=== PATIENT | female | born 1985 | race Two or more races ===

== ENCOUNTER → 2019-08-12 | Outpatient (REF) | payer BC ==
[2019-08-12 13:27] LABS: HEMATOCRIT 46.4 % (36.0-47.0); HEMOGLOBIN 14.8 g/dl (12.0-15.5); MEAN CORPUSCULAR HGB CONC 31.9 g/dl (32.0-36.5); MEAN CORPUSCULAR VOLUME 87.7 fl (80.0-96.0); PLATELET COUNT, AUTOMATED 446 10^3/uL (150-450); RED BLOOD COUNT 5.29 10^6/uL (4.00-5.40)
[2019-08-12 13:46] LABS: HEMOGLOBIN A1c 5.6 %
[2019-08-12 13:48] LABS: ALBUMIN 4.6 GM/DL (3.2-5.2); ALT/SGPT 23 U/L (12-78); BILIRUBIN,TOTAL 0.7 MG/DL (0.2-1.0); BLOOD UREA NITROGEN 10 MG/DL (7-18); CALCIUM LEVEL 9.2 MG/DL (8.5-10.1); CARBON DIOXIDE LEVEL 30 MEQ/L (21-32); CHLORIDE LEVEL 100 MEQ/L (98-107); CHOLESTEROL LEVEL 213 MG/DL (<200); CHOLESTEROL RISK RATIO 4.096 (<5); CREATININE FOR GFR 0.72 MG/DL (0.55-1.30); FREE T4 1.06 NG/DL (0.76-1.46); GLOMERULAR FILTRATION RATE > 60.0 (>60); GLUCOSE, FASTING 95 MG/DL (70-100); HDL CHOLESTEROL 52 MG/DL (>40); LDL CHOLESTEROL 127 MG/DL (<100); NON-HDL-C 161 MG/DL; POTASSIUM SERUM 4.3 MEQ/L (3.5-5.1); SODIUM LEVEL 137 MEQ/L (136-145); THYROID STIMULATING HORMONE 0.504 uIU/ML (0.358-3.740); TOTAL PROTEIN 8.3 GM/DL (6.4-8.2); TRIGLYCERIDES LEVEL 171 MG/DL (<150)
[2019-08-12 13:54] LABS: MALB URINE SIEMENS 36.6 MG/L
== END ==
LOC: M SFHCLERA 09:18
PROVIDERS: ATTEND Nurse Practitioner Family
DX: R03.0 Elevated blood-pressure reading, without diagnosis of hypertension (principal); Z83.3 Family history of diabetes mellitus; E66.9 Obesity, unspecified

== ENCOUNTER → 2019-11-08 | Outpatient (REF) | payer BC ==
[2019-11-08 13:40] LABS: HEMATOCRIT 43.5 % (36.0-47.0); HEMOGLOBIN 14.1 g/dl (12.0-15.5); MEAN CORPUSCULAR HEMOGLOBIN 28.5 pg (27.0-33.0); MEAN CORPUSCULAR HGB CONC 32.4 g/dl (32.0-36.5); MEAN CORPUSCULAR VOLUME 87.9 fl (80.0-96.0); PLATELET COUNT, AUTOMATED 419 10^3/uL (150-450); RED BLOOD COUNT 4.95 10^6/uL (4.00-5.40); WHITE BLOOD COUNT 10.4 10^3/uL (4.0-10.0)
[2019-11-08 14:10] LABS: HEMOGLOBIN A1c 5.3 %
[2019-11-08 14:11] LABS: ALT/SGPT 15 U/L (12-78); BILIRUBIN,TOTAL 0.3 MG/DL (0.2-1.0); CREATININE FOR GFR 0.64 MG/DL (0.55-1.30); GLOMERULAR FILTRATION RATE > 60.0 (>60); GLUCOSE CHALLENGE TEST 1 HOUR 131 MG/DL (LESS THAN 140); LDH LACTATE DEHYDROGENASE 135 U/L (84-246); URIC ACID 5.5 MG/DL (2.6-6.0)
[2019-11-08 14:14] LABS: TOTAL PROTEIN,RANDOM URINE 17.6 MG/DL (0.0-12.0)
[2019-11-08 15:12] LABS: HEPATITIS C VIRUS ABY INDEX 0.3 INDEX (<0.8); HIV 1&2 SCREEN CENTAUR NEGATIVE (NEGATIVE)
[2019-11-08 17:03] LABS: CHLAMYDIA DNA AMPLIFICATION NEGATIVE (NEGATIVE); GC DNA AMPLIFICATION NEGATIVE (NEGATIVE)
== END ==
LOC: M PLALAB 11:01
PROVIDERS: ATTEND Advanced Practice Midwife
DX: O99.211 Obesity complicating pregnancy, first trimester (principal); Z3A.10 10 weeks gestation of pregnancy

== ENCOUNTER → 2019-11-14 | Outpatient (CLI) | payer BC | LOC: M LAB 08:01 | PROVIDERS: ATTEND Advanced Practice Midwife | DX: Z36.89 Encounter for other specified antenatal screening (principal); O99.211 Obesity complicating pregnancy, first trimester ==

== ENCOUNTER → 2019-11-22 | Outpatient (CLI) | payer BC | LOC: M PLALAB 10:34 | PROVIDERS: ATTEND Advanced Practice Midwife | DX: Z34.02 Encounter for supervision of normal first pregnancy, second trimester (principal); Z3A.00 Weeks of gestation of pregnancy not specified ==

== ENCOUNTER → 2020-01-02 | Outpatient (REF) | payer BC | LOC: M SFHCWAGY 13:20 | PROVIDERS: ATTEND Obstetrics & Gynecology | DX: R30.0 Dysuria (principal) ==

== ENCOUNTER → 2020-01-05 | Outpatient (REF) | payer BC | LOC: M LAB REF 17:37 | PROVIDERS: ATTEND Advanced Practice Midwife | DX: R30.0 Dysuria (principal) ==

== ENCOUNTER → 2020-01-16 | Outpatient (CLI) | payer BC ==
--- NOTE | 2020-02-13 11:15 | REP ---
COMPLETE OBSTETRICAL ULTRASOUND CLINICAL: Obstetrical ultrasound. FINDINGS: Ultrasound examination demonstrates a single live intrauterine in cephalic presentation. motion was identified by the technologist. Placenta noted anteriorly and grade 0 without evidence for placenta previa or abruption. Amniotic fluid volume is within normal limits. Cervix measures 5.1 cm in length and appears closed. heart rate equals 141 beats per minute. Gestational age by current biometrical measurements 20 weeks 1 day with estimated date of delivery 06/03/2020. Estimated weight 333 grams (35th percentile). Anatomic assessment demonstrates normal cisterna magna, cavum, thalamus, stomach, bladder, three-vessel cord/cord insertion, facial features, and extremities. Limited evaluation of the spine, kidneys, heart/ventricular outflow tracts noted. IMPRESSION: Single live intrauterine in cephalic presentation. Appropriate estimated weight. Limited anatomical assessment warrants reevaluation and followup. MTDD
== END ==
LOC: M RAD 15:32
PROVIDERS: ATTEND Specialist
DX: Z36.89 Encounter for other specified antenatal screening (principal); Z3A.20 20 weeks gestation of pregnancy

== ENCOUNTER → 2020-02-05 | Outpatient (CLI) | payer BC ==
--- NOTE | 2020-02-15 09:07 | REP ---
FOLLOW-UP OBSTETRIC ULTRASOUND CLINICAL: Anatomical reevaluation. FINDINGS: Ultrasound examination demonstrates a single live intrauterine in variable presentation. Placenta noted anteriorly and grade 0 without placenta previa or abruption. Amniotic fluid volume is normal. Cervix measures 4.2 cm in length and appears closed. Gestational age by current measurements 23 weeks 0 days with estimated date of delivery 06/03/2020. Gestational age by last menstrual period (LMP) 23 weeks 2 days with estimated date of delivery 06/01/2020. heart rate 163 beats per minute. Estimated weight 559 grams (51st percentile). Limited anatomical assessment demonstrates normal four chamber heart views, left ventricular outflow tract, and bilateral kidneys. Limited evaluation of the right cardiac ventricular outflow tract and spine again noted due to positioning. IMPRESSION: Single live intrauterine in variable presentation. Continued limited evaluation of the right cardiac ventricular outflow tract and spine. MTDD
== END ==
LOC: M WHC 08:51
PROVIDERS: ATTEND Advanced Practice Midwife
DX: O09.512 Supervision of elderly primigravida, second trimester (principal); Z3A.23 23 weeks gestation of pregnancy; O10.012 Pre-existing essential hypertension complicating pregnancy, second trimester

== ENCOUNTER → 2020-03-04 | Outpatient (CLI) | payer BC ==
[2020-03-04 18:41] LABS: BASO % 0.3 % (0.0-1.0); EOS # 0.2 10^3/uL (0.0-0.5); EOS % 1.6 % (0.0-3.0); HEMATOCRIT 36.8 % (36.0-47.0); HEMOGLOBIN 11.6 g/dl (12.0-15.5); LYMPH # 1.3 10^3/uL (1.5-5.0); LYMPH % 12.7 % (24.0-44.0); MEAN CORPUSCULAR HEMOGLOBIN 28.3 pg (27.0-33.0); MEAN CORPUSCULAR HGB CONC 31.5 g/dl (32.0-36.5); MEAN CORPUSCULAR VOLUME 89.8 fl (80.0-96.0); MONO # 0.6 10^3/uL (0.0-0.8); MONO % 5.4 % (0.0-5.0); NEUTROPHILS # 8.2 10^3/uL (1.5-8.5); NEUTROPHILS % 79.5 % (36.0-66.0); PLATELET COUNT, AUTOMATED 413 10^3/uL (150-450); WHITE BLOOD COUNT 10.3 10^3/uL (4.0-10.0)
== END ==
LOC: M PLALAB 15:42
PROVIDERS: ATTEND Advanced Practice Midwife
DX: O24.410 Gestational diabetes mellitus in pregnancy, diet controlled (principal); Z3A.00 Weeks of gestation of pregnancy not specified
CPT/HCPCS: 36415; 85025; 86850; 86900; 86901; J2790

== ENCOUNTER → 2020-03-04 | Outpatient (CLI) | payer BC ==
--- NOTE | 2020-03-04 16:57 | REP ---
INDICATION: F/U ANATOMY/SPINE,GROWTH COMPARISON: 02/05/2020 TECHNIQUE: Transabdominal obstetrical ultrasound with color Doppler evaluation. FINDINGS: Examination demonstrates a single live intrauterine in cephalic presentation. motion is identified by technologist. Placenta is noted anterior and grade 2 without evidence for placenta previa or abruption. Amniotic fluid volume is normal. Cervix measures 4.0 cm in length and appears closed. Multiple nabothian cysts noted in the uterine cervix. Gestational age by LMP 27 weeks 2 days with LUCIANA 06/01/2020. Gestational age by current measurements 27 weeks 4 days with LUCIANA 05/30/2020. FHR equals 149 beats per minute. Estimated weight 1144 grams (63rdpercentile). Anatomical assessment demonstrates normal spine and cardiac right ventricular outflow tract. IMPRESSION: 1. Single live intrauterine in cephalic presentation demonstrating appropriate interval growth and estimated weight. 2. In conjunction with prior examination and Dom go assessment is complete and normal. <Electronically signed by Agustin Douglas > 03/04/20 [id number]
== END ==
LOC: M WHC 14:34
PROVIDERS: ATTEND Advanced Practice Midwife
DX: O99.212 Obesity complicating pregnancy, second trimester (principal); Z3A.27 27 weeks gestation of pregnancy

== ENCOUNTER → 2020-03-22 | Outpatient (CLI) | payer BC | LOC: M WHC 08:04 | PROVIDERS: ATTEND Obstetrics & Gynecology | DX: O10.919 Unspecified pre-existing hypertension complicating pregnancy, unspecified trimester (principal) ==

== ENCOUNTER → 2020-04-01 | Outpatient (CLI) | payer BC ==
--- NOTE | 2020-04-02 05:42 | REP ---
INDICATION: CHRONIC HYPERTENSION,GROWTH COMPARISON: 03/04/2020 TECHNIQUE: Transabdominal obstetrical ultrasound with color Doppler evaluation. FINDINGS: Examination demonstrates a single live intrauterine in breech presentation. motion is identified by technologist. Placenta is noted anterior and grade 2 without evidence for placenta previa or abruption. Amniotic fluid volume is normal. Cervix measures 3.5 cm in length and appears closed.. Gestational age by LMP 31 weeks 2 days with LUCIANA 06/01/2020. Gestational age by current measurements 31 weeks 2 days with LUCIANA 06/01/2020. FHR equals 158 beats per minute. BPD: 7.8 cm 31 weeks 3 days HC: 28.4 cm thirty-one weeks 2 days AC: 27.1 cm 31 weeks 1 day FL: 6.0 cm 31 weeks 1 day HL: 5.4 cm 31 weeks 4 days HC/AC: 0.05 Estimated weight 1723 grams (35thpercentile). RADHA: 14.5 cm (8.7-23.9) IMPRESSION: Single live intrauterine in breech presentation demonstrating appropriate interval growth. <Electronically signed by Agustin Douglas > 04/02/20 0538
== END ==
LOC: M WHC 16:06
PROVIDERS: ATTEND Obstetrics & Gynecology
DX: O10.919 Unspecified pre-existing hypertension complicating pregnancy, unspecified trimester (principal); Z3A.31 31 weeks gestation of pregnancy; O32.1XX0 Maternal care for breech presentation, not applicable or unspecified

== ENCOUNTER → 2020-04-29 | Outpatient (CLI) | payer BC | LOC: M WHC 15:27 | PROVIDERS: ATTEND Advanced Practice Midwife | DX: O10.019 Pre-existing essential hypertension complicating pregnancy, unspecified trimester (principal) ==

== ENCOUNTER → 2020-04-29 | Outpatient (CLI) | payer BC ==
--- NOTE | 2020-04-30 10:11 | REP ---
INDICATION: ESSENTIAL HYPERTENSION AFFECTING . COMPARISON: 04/01/2020. TECHNIQUE: Real-time sonographic evaluation of the gravid uterus performed. FINDINGS: Estimated gestational age is35 weeks 2 days, EDC 06/01/2020. Today's measurements indicate appropriate growth. Presentation: Cephalic Placenta anterior, grade 3, without evidence of placenta previa. heart rate is recorded at 140 beats per minute. Amniotic fluid is subjectively normal. RADHA is 10.3, normal 7.8-24.9. Approximate cervical length is 3.1 cm. Biometry chart: BPD: Eighty-nine mm, 35 weeks 6 days, 59th percentile. HC: 339 mm, 38 weeks 6 days, greater than 95th percentile AC: 331 mm, 37 weeks 0 days, 75th percentile Femur length: 66 mm, 34 weeks for 1 days, 32nd percentile HC to AC ratio: 1.02, normal range 0.93-1.12.. Estimated weight: 2916g, 77th percentile. IMPRESSION: Viable single intrauterine gestation as above. Incidental note is made of moderate left hydronephrosis. Follow-up is suggested. <Electronically signed by Jd Desouza > 04/30/20 [id number]
== END ==
LOC: M WHC 16:10
PROVIDERS: ATTEND Advanced Practice Midwife
DX: O10.019 Pre-existing essential hypertension complicating pregnancy, unspecified trimester (principal)

== ENCOUNTER → 2020-05-07 | Outpatient (REF) | payer BC ==
[~2020-05-07] MED LIST: LABE100T36 PO; PRENTAB9 PO
== END ==
LOC: M SFHCWAGY 16:59
PROVIDERS: ATTEND Obstetrics & Gynecology
DX: O09.513 Supervision of elderly primigravida, third trimester (principal); O99.213 Obesity complicating pregnancy, third trimester; O10.913 Unspecified pre-existing hypertension complicating pregnancy, third trimester; O24.313 Unspecified pre-existing diabetes mellitus in pregnancy, third trimester; Z3A.36 36 weeks gestation of pregnancy

== ENCOUNTER 2020-05-14 16:24 | Inpatient (IN) | payer BC ==
[2020-05-14] VITALS (11 sets, daily range): BP systolic 150–187; BP diastolic 75–93
[~2020-05-14] VITALS: Ht 175.3 cm; Wt 125.0 kg
[2020-05-14] MEDS ORDERED: PRENTAB9 PO (16:49)
[2020-05-14] MEDS ORDERED: LABE100T36 PO (16:49)
[2020-05-14 17:23] LABS: TOTAL PROTEIN,RANDOM URINE 24.2 MG/DL (0.0-12.0)
--- NOTE | 2020-05-14 18:21 | HPEPDOC ---
Obstetrical History & Physical General Date of Admission May 14, 2020 at 17:47 History of Present Illness 34-year-old at 37+3 weeks gestation (EDC: 06/01/20). Presents to L&D after PN appointment. BP noted to be severely elevated during her PN appointment. She denies vaginal bleeding, loss of fluid or painful, frequent uterine contractions. She reports regular movement. She denies headache, visual changes, right upper quadrant pain, shortness of breath or chest pain. course: 1. Chronic Hypertension. Labetalol 100mg PO BID 2. Pregestational DM2/PCOS; Metformin 500mg BID 3. Obesity 4. Advanced maternal age PMH: HTN, PCOS SH: adenoidectomy Meds: vitamin, Labetalol 100mg PO BID, ASA 81mg daily All: NKDA [employer]: No STI or dysplasia OB: G1 Sochx: No tobacco, alcohol or drug use FamHx: heart disease, HTN labs: Blood type O negative, antibody screen negative, HepBsAg neg, HIV neg, rubella NONIMMUNE, Hep C antibody negative, RPR nonreactive, CT/GC neg, urine culture negative, 1 hour glucose challenge test 131, 3hr GTT: 105/189/162/91, GBS negative Imaging: Normal anatomy, moderate hydronephrosis (left), no placental abnormalities. Most recent: 04/29/20. 77th percentile Past Medical History Allergies Coded Allergies: No Known Allergies (Unverified , 05/14/20) Medications Scheduled Labetalol HCl (Labetalol HCl) 100 Mg Tablet, 100 MG PO BID No.137/Iron/Folic Acd ( Vitamin Tablet) 1 Each Tablet, 1 TAB PO DAILY Physical Examination Physical Examination GENERAL: Alert and oriented times three. BREAST: . ABDOMEN: Gravid and non-tender to touch. FETUS: Is vertex (VTX) by sterile vaginal examination (SVE), fetus is vertex (VTX) by Ady. HEART RATE: Regular rate and rhythm. LUNGS: Clear to auscultation (CTA). EXTREMITIES: No edema. No clonus. Deep tendon reflexes (DTRs) + 2 SVE: FT/long/high, cephalic, intact, no bloody show EFM: Cat I [place]: irregular ctx. Urine Pr/Cr: 0.275 Vital Signs/I&O Vital Signs Date Time Temp Pulse Resp B/P (MAP) Pulse Ox O2 Delivery O2 Flow Rate FiO2 05/14/20 16:40 87 18 187/93 (124) Laboratory Data 24H LABS Laboratory Tests 2 05/14/20 16:40: Urine Random Creatinine 88.0, Urine Random Total Protein 24.2H Assessment/Plan Assessment 34-year old at 37+3 weeks gestation. Dx: Chronic hypertension with severe range BPs, pre-gestational diabetes/PCOS. Reassuring maternal and status. Plan Admit and orient. Routine labs/orders w/ pre-e lab panel Group B Streptococcus (GBS) negative. Start with cervical ripening via misoprostol 50mcg SL every 4-6 hours until cervix is favorable. Counseled on Pitocin and induction of labor (IOL). Treat persistent severe hypertension with IV antihypertensives, magnesium sulfate as clinically indicated Mode of delivery plan: ; as indicated. VÍCTOR JASON DO May 14, 2020 18:21
[2020-05-14] MEDS ORDERED: INSULIN REGULAR IN 0.9 % NACL 100 UNIT in IV 1 EA IV SCH ×2 (18:26)
[2020-05-14] MEDS ORDERED: NS 1,000 ML IV SCH (18:26)
[2020-05-14] MEDS ORDERED: INSULIN IV RATE CHANGE DOCUMENTATION ML/HR XX SCH (18:30)
[2020-05-14] MEDS: miSOPROStol 50 MCG 1/2 TAB (S0191) SL SCH ×2 (18:54→23:06)
[2020-05-14 19:23] LABS: HEMATOCRIT 39.2 % (36.0-47.0); HEMOGLOBIN 12.1 g/dl (12.0-15.5); MEAN CORPUSCULAR HEMOGLOBIN 26.8 pg (27.0-33.0); MEAN CORPUSCULAR HGB CONC 30.9 g/dl (32.0-36.5); MEAN CORPUSCULAR VOLUME 86.7 fl (80.0-96.0); PLATELET COUNT, AUTOMATED 361 10^3/uL (150-450); RED BLOOD COUNT 4.52 10^6/uL (4.00-5.40); WHITE BLOOD COUNT 10.6 10^3/uL (4.0-10.0)
[2020-05-14 19:34] LABS: ALT/SGPT 16 U/L (12-78); BILIRUBIN,TOTAL 0.4 MG/DL (0.2-1.0); CREATININE FOR GFR 0.63 MG/DL (0.55-1.30); GLOMERULAR FILTRATION RATE > 60.0 (>60); LDH LACTATE DEHYDROGENASE 186 U/L (84-246); URIC ACID 6.2 MG/DL (2.6-6.0)
[2020-05-14] MEDS: LABETALOL 100 MG TAB PO SCH (21:47)
[2020-05-14] MEDS ORDERED: LABETALOL 100MG/20ML VIAL IV ONE (23:30)
[2020-05-14] MEDS ORDERED: LABETALOL 100MG/20ML VIAL IV PRN (23:45)
[2020-05-15] VITALS (39 sets, daily range): BP systolic 127–191; BP diastolic 61–91
[2020-05-15] MEDS: miSOPROStol 50 MCG 1/2 TAB (S0191) SL SCH ×2 (03:06→09:06)
[2020-05-15] MEDS ORDERED: LABE100T36 PO (08:37)
[2020-05-15] MEDS ORDERED: PRENTAB9 PO (08:37)
[2020-05-15] MEDS: LABETALOL 100 MG TAB PO SCH ×2 (09:06→21:00)
[2020-05-15] MEDS ORDERED: OXYTOCIN DRIP 30 UNITS in IV 1 EA IV SCH (13:45)
[2020-05-15] MEDS: LR 1,000 ML IV SCH (14:05)
[2020-05-15] MEDS ORDERED: LABETALOL 100MG/20ML VIAL As Ordered ONE (17:35)
[2020-05-15] MEDS ORDERED: LABETALOL 100MG/20ML VIAL IV STA ×2 (17:40→17:56)
[2020-05-15] MEDS ORDERED: BUTORPHANOL 2 MG/ML INJ (J0595) IV ONE (18:15)
[2020-05-15] MEDS ORDERED: PROMETHAZINE INJ 25 MG/ML VIAL (J2550) IV ONE (18:15)
[2020-05-15 20:15] LABS: HEMATOCRIT 37.2 % (36.0-47.0); HEMOGLOBIN 11.6 g/dl (12.0-15.5); MEAN CORPUSCULAR HEMOGLOBIN 27.3 pg (27.0-33.0); MEAN CORPUSCULAR HGB CONC 31.2 g/dl (32.0-36.5); MEAN CORPUSCULAR VOLUME 87.5 fl (80.0-96.0); PLATELET COUNT, AUTOMATED 317 10^3/uL (150-450); RED BLOOD COUNT 4.25 10^6/uL (4.00-5.40); WHITE BLOOD COUNT 12.2 10^3/uL (4.0-10.0)
[2020-05-16] VITALS (50 sets, daily range): BP systolic 138–220; BP diastolic 70–115
[2020-05-16] MEDS: LR 1,000 ML IV SCH ×3 (05:39→21:43)
[2020-05-16] MEDS: LABETALOL 100 MG TAB PO SCH ×3 (08:32→21:03)
--- NOTE | 2020-05-16 09:12 | IPNPDOC ---
Obstetrical Progress Note Date of Service May 16, 2020 Subjective Comfortable, contractions not painful Objective Vital Signs Date Time Temp Pulse Resp B/P (MAP) Pulse Ox O2 Delivery O2 Flow Rate FiO2 05/16/20 08:43 84 18 177/91 (119) 05/16/20 07:36 98.4 99 Room Air Assessment Variability: Moderate Accelerations: Positive Decelerations: None Heart Rate Tracing: Category I Tocometer Contractions: Yes Frequency: regular Duration: less than 60 seconds Strength: palpated as mild Sterile Vaginal Examination Dilation: 4 cm Effacement (%): 80% Station: -2 Cervical Consistency: Soft Cervical Position: Posterior Postion/Presentation: Cephalic presentation Assessment and Plan Additional Comments AROM clear fluid A/P 34 yo g1 at 37 5/7 weeks, day 3 induction for chronic hypertension and pregestational diabetes AROM performed as noted above Pitocin at 20 mu/minute Reassuring status JUMANA MI MD May 16, 2020 09:12
[2020-05-16 13:20] LABS: HEMATOCRIT 36.6 % (36.0-47.0); HEMOGLOBIN 11.6 g/dl (12.0-15.5); MEAN CORPUSCULAR HEMOGLOBIN 27.6 pg (27.0-33.0); MEAN CORPUSCULAR HGB CONC 31.7 g/dl (32.0-36.5); MEAN CORPUSCULAR VOLUME 86.9 fl (80.0-96.0); PLATELET COUNT, AUTOMATED 307 10^3/uL (150-450); RED BLOOD COUNT 4.21 10^6/uL (4.00-5.40); WHITE BLOOD COUNT 10.5 10^3/uL (4.0-10.0)
[2020-05-16] MEDS ORDERED: FENTANYL 2MCG/ML ROPIVACAINE 0.2% IN 0.9% NACL 100ML IVBAG As Ordered ONE (13:39)
[2020-05-16] MEDS ORDERED: LACTATED RINGER'S 1000 ML IV PRN (15:00)
[2020-05-16] MEDS ORDERED: ONDANSETRON 4MG/2ML VIAL IV PRN (15:00)
[2020-05-16] MEDS ORDERED: REFRIGERATOR IV KEYS XX PRN (15:00)
[2020-05-16] MEDS ORDERED: EPIDURAL/PCA KEYS XX PRN (15:00)
[2020-05-16] MEDS ORDERED: ePHEDrine SULFATE 25 MG/5 ML(5MG/ML) SYRINGE IV PRN (15:00)
[2020-05-16] MEDS ORDERED: diphenhydrAMINE 50MG/ML VIAL (J1200) IV PRN (15:00)
[2020-05-16] MEDS ORDERED: NALOXONE INJ 0.4MG/1ML VIAL (J2310 PER 1MG) IV PRN (15:00)
[2020-05-16] MEDS ORDERED: EPIDURAL COMMENT XX SCH (15:00)
[2020-05-16] MEDS: FENTANYL/ROPIVACAINE/NACL BAG 100 ML EPIDURAL SCH ×2 (15:34→22:16)
[2020-05-17] VITALS (22 sets, daily range): BP systolic 142–188; BP diastolic 72–98
[2020-05-17 02:13] LABS: CORD GAS ABE A -6.9; CORD GAS HCO3 A 19.8 MEQ/L; CORD GAS O2 SAT A 54.6 %; CORD GAS PCO2 A 43.5 mmHg; CORD GAS PH A 7.275 UNITS; CORD GAS PO2 A 23.9 mmHg; CORD GAS SBC A 17.9 MEQ/L; CORD GAS TCO2 A 21.1 MEQ/L
[2020-05-17 02:14] LABS: CORD GAS ABE V -6.1; CORD GAS HCO3 V 20.4 MEQ/L; CORD GAS PCO2 V 43.6 mmHg; CORD GAS PH V 7.288 UNITS; CORD GAS PO2 V 23.8 mmHg; CORD GAS SBC V 18.5 MEQ/L; CORD GAS TCO2 V 21.7 MEQ/L
[2020-05-17] MEDS ORDERED: DOCUSATE SODIUM 100MG CAPSULE PO PRN (02:30)
[2020-05-17] MEDS ORDERED: IBUPROFEN 600MG TAB PO PRN (02:30)
[2020-05-17] MEDS ORDERED: OXYTOCIN DRIP 30 UNITS in IV 1 EA IV ONE (02:30)
[2020-05-17] MEDS ORDERED: METHYLERGONOVINE MALEATE 0.2 MG TAB PO PRN (02:30)
[2020-05-17] MEDS ORDERED: ACETAMINOPHEN TAB 650MG DOSE (2X325MG) PO PRN (02:30)
[2020-05-17] MEDS ORDERED: BENZOCAINE 20% HEMORRHOIDAL OINTMENT 28GM TUBE TOP PRN (02:30)
[2020-05-17] MEDS ORDERED: ACETAMINOPHEN 500 MG TAB PO PRN (02:30)
[2020-05-17] MEDS ORDERED: MEASLES,MUMPS,RUBELLA VACCINE INJ (MMR-II) (90707) SC SCH (02:30)
[2020-05-17] MEDS ORDERED: LIDOCAINE 1% MDV 20ML VIAL INFIL ONE (02:30)
[2020-05-17] MEDS ORDERED: RHOGAM 300 MCG (1500 IU) INJ (J2790) IM SCH (02:30)
--- NOTE | 2020-05-17 02:34 | DNPDOC ---
[facility] Delivery Note Delivery Note DATE OF DELIVERY: May 17, 2020 PREDELIVERY DIAGNOSIS: 37-3/7 weeks' gestation, chronic hypertension, pregestational diabetes, induction. POST DELIVERY DIAGNOSIS: Delivered. PROCEDURE: Spontaneous vaginal delivery SCIENTIFIC DIVER: Dr. Jumana Mi MD ANESTHESIA: epidural. ESTIMATED BLOOD LOSS: 300 mL. FINDINGS: 7 pound 9 ounce Male , Score 3/5/7, nuchal cord times 1. AB.27 BE=-6.9 VB.28 BE=-6.1 DELIVERY SUMMARY: Patient is a 34-year-old 1 now para 1 who was admitted to labor and delivery for induction due to chronic hypertension and pregestational diabetes. After an induction involving Misoprostol, Cook's Catheter, and Pitocin she progressed to become fully dilated. After a 35 minute second stage of labor she had spontaneous vaginal delivery of a 7 lb 9 oz male infant. Nuchal cord x 1 reduced manually. Shoulders delivered with ease .The placenta delivered spontaneously and appeared intact. The patient received IV Pitocin immediately after delivery of the placenta. A second degree perineal laceration was repaired under local anesthesia with 2-O Chromic in the usual fashion. Sponge and needle counts correct. JUMANA MI MD May 17, 2020 02:34
[2020-05-17] MEDS ORDERED: NIFEdipine 10 MG CAP PO ONE (03:15)
[2020-05-17] MEDS: PRENATAL VITAMINS CHEWABLE TABLET PO SCH (08:30)
[2020-05-17] MEDS ORDERED: LABETALOL 200 MG TAB PO SCH (09:00)
--- NOTE | 2020-05-17 09:28 | IPNPDOC ---
Progress Note Date of Service: May 17, 2020 Progress Note SUBJECT: Carole is a 34-year-old female who delivered earlier today. She continues to have severe range blood pressures. She denies any preeclamptic symptoms. OBJECTIVE: VITAL SIGNS: See below. Alert and oriented times three. Breath sounds clear to auscultation bilaterally. Heart rate: Regular rate and rhythm, no murmurs, rubs or gallops. Extremities without clonus. ASSESSMENT: Vaginal delivery, CHTN with superimposed preeclampsia PLAN: Reviewed elevated BP's with Dr. Rosales. Recommends patient be started on Nifedipine 30 mg XR. Ordered. Will continue to monitor. Ordered repeat labs. VS, I&O, 24H, Fishbone Vital Signs/I&O Vital Signs Date Time Temp Pulse Resp B/P (MAP) Pulse Ox O2 Delivery O2 Flow Rate FiO2 05/17/20 09:00 178/92 (120) 05/17/20 08:45 89 05/17/20 06:00 98.9 16 97 Room Air I&O- Last 24 Hours up to 6 AM 05/17/20 06:00 Intake Total 2400 ml Output Total 1500 ml Balance 900 ml Laboratory Data 24H LABS Laboratory Tests 2 05/16/20 10:18: Bedside Glucose (Misc Panel) 108H 05/16/20 13:07: Nucleated Red Blood Cells % (auto) 0.0 05/16/20 15:37: Bedside Glucose (Misc Panel) 85 05/16/20 21:08: Bedside Glucose (Misc Panel) 69L 05/17/20 01:55: Cord Arterial Blood pH 7.275, Cord Arterial Blood PCO2 43.5, Cord Arterial Blood PO2 23.9, Cord Arterial Blood HCO3 19.8, Cord Arterial Blood Total CO2 21.1, Cord Arterial Blood Base Excess -6.9, Cord Arterial Base Excess (Standard 17.9, Cord Arterial Bld Oxygen Saturation 54.6, Cord Venous Blood pH 7.288, Cord Venous Blood PCO2 43.6, Cord Venous Blood PO2 23.8, Cord Venous Blood HCO3 20.4, Cord Venous Blood Total CO2 21.7, Cord Venous Base Excess (Actual) -6.1, Cord Venous Base Excess (Standard) 18.5, Cord Venous Blood Oxygen Saturation 54.0 CBC/BMP Laboratory Tests 05/16/20 13:07 PAVEL REN CNM May 17, 2020 09:28
[2020-05-17 10:24] LABS: HEMATOCRIT 37.7 % (36.0-47.0); MEAN CORPUSCULAR HEMOGLOBIN 28.1 pg (27.0-33.0); MEAN CORPUSCULAR HGB CONC 31.8 g/dl (32.0-36.5); MEAN CORPUSCULAR VOLUME 88.3 fl (80.0-96.0); PLATELET COUNT, AUTOMATED 320 10^3/uL (150-450); RED BLOOD COUNT 4.27 10^6/uL (4.00-5.40)
[2020-05-17] MEDS: NIFEdipine 30 MG XL TAB PO SCH (10:34)
[2020-05-17] MEDS: IBUPROFEN 800 MG TAB PO PRN ×2 (10:34→21:28)
[2020-05-17 10:55] LABS: ALT/SGPT 14 U/L (12-78); BILIRUBIN,TOTAL 0.5 MG/DL (0.2-1.0); GLOMERULAR FILTRATION RATE > 60.0 (>60); LDH LACTATE DEHYDROGENASE 241 U/L (84-246); URIC ACID 7.7 MG/DL (2.6-6.0)
[2020-05-17] MEDS: LABETALOL 100 MG TAB PO SCH ×2 (15:22→21:28)
[2020-05-18] VITALS (17 sets, daily range): BP systolic 138–172; BP diastolic 89–105
--- NOTE | 2020-05-18 07:26 | IPNPDOC ---
Progress Note Date of Service: May 18, 2020 Day#: 1 Progress Note SUBJECT: Carole is a 34-year-old, status post uncomplicated spontaneous vaginal delivery, doing well day # 1. Her and period has been complicated by CHTN with superimposed preeclampsia. She has been ambulating, voiding spontaneously without issue and tolerating regular diet. Breast feeding without issue. Reports lochia is like a normal period. Patient is ambulating well. Pain well controlled with Tylenol and Motrin. Denies s/s of preeclampsia. OBJECTIVE: VITAL SIGNS: BPs as below, afebrile Alert and oriented times three. Respirations regular, no accessory muscle use. Abdomen: Fundus firm at U-1. Soft, NTTP. Extremities: Mild non pitting edema in bilateral lower extremities, DTRs +2, negative clonus, no calf tenderness. Minimal lochia. Vital Signs Label Value Date Time Blood Pressure Assessment 147/88 (107) 05/17/20 1635 Source Automatic Cuff (NIBP) Blood Pressure Assessment 152/87 (108) 05/17/20 1807 Source Automatic Cuff (NIBP) Blood Pressure Assessment 146/90 05/17/20 2128 Blood Pressure Assessment 157/89 (111) 05/18/20 0200 Source Automatic Cuff (NIBP) Pulse 89 05/17/20 1807 Pulse 81 05/17/208 Pulse 82 05/18/20 0200 ASSESSMENT: Day #1. PLAN: 1. Labetalol and Procardia as ordered. Given her severe pressures this morning she will be started on Magnesium after consulting with Dr. Velasco. 2. Tylenol and Motrin for pain. 3. Encourage breast feeding. 4. BP checks every 1 hour while on Magnesium. 5. Nursing care as per policy. 6. May shower today prior to starting Magnesiumd. VS, I&O, 24H, Fishbone Vital Signs/I&O Vital Signs Date Time Temp Pulse Resp B/P (MAP) Pulse Ox O2 Delivery O2 Flow Rate FiO2 05/18/20 06:00 97.6 88 16 160/98 (118) 98 Room Air I&O- Last 24 Hours up to 6 AM 05/18/20 06:00 Output Total 300 ml Balance -300 ml Vital Signs Label Value Date Time Blood Pressure Assessment 160/98 (118) 05/18/20 0600 Source Manual Cuff/Auscultation Pulse 88 05/18/20 0600 Patient Temperature 97.6 degrees F 05/18/20 0600 Temperature Source Temporal 05/18/20 0600 Respiratory Rate 16 bpm 05/18/20 0600 Bedside Pulse Oximetry 98 % 05/18/20 0600 Blood Pressure Assessment 172/98 (122) 05/18/20 0750 Source Automatic Cuff (NIBP) Blood Pressure Assessment 172/98 05/18/20 0754 Laboratory Data 24H LABS Laboratory Tests 2 05/17/20 10:03: Nucleated Red Blood Cells % (auto) 0.0, Glomerular Filtration Rate > 60.0, Uric Acid 7.7H, Total Bilirubin 0.5, Aspartate Amino Transf (AST/SGOT) 22, Alanine Aminotransferase (ALT/SGPT) 14, Lactate Dehydrogenase 241 CBC/BMP Laboratory Tests 05/17/20 10:03 PAVEL REN CNM May 18, 2020 07:26
[2020-05-18] MEDS: NIFEdipine 30 MG XL TAB PO SCH (07:54)
[2020-05-18] MEDS: PRENATAL VITAMINS CHEWABLE TABLET PO SCH (07:55)
[2020-05-18] MEDS: LABETALOL 100 MG TAB PO SCH ×3 (07:55→20:29)
[2020-05-18] MEDS: LR 1,000 ML IV SCH ×2 (08:30→21:24)
[2020-05-18] MEDS ORDERED: MAGNESIUM *L&D* 4GM/100ML BAG (40MG/ML) IV ONE (08:30)
[2020-05-18] MEDS: MAG Sulf (OBGYN) 20GM/500ML 20,000 MG in IV 1 EA IV SCH ×2 (08:55→19:01)
[2020-05-18] MEDS ORDERED: NIFEdipine 30 MG XL TAB PO SCH (09:00)
[2020-05-19] VITALS (16 sets, daily range): BP systolic 144–168; BP diastolic 82–105
[2020-05-19] MEDS ORDERED: hydrOXYzine 25 MG TAB PO PRN (02:15)
[2020-05-19] MEDS: MAG Sulf (OBGYN) 20GM/500ML 20,000 MG in IV 1 EA IV SCH (05:16)
[2020-05-19] MEDS: LABETALOL 100 MG TAB PO SCH (09:06)
[2020-05-19] MEDS: PRENATAL VITAMINS CHEWABLE TABLET PO SCH (09:06)
[2020-05-19] MEDS: amLODIPine 10 MG TAB PO SCH (10:00)
--- NOTE | 2020-05-19 10:03 | IPNPDOC ---
Progress Note Date of Service: May 19, 2020 Day#: 2 Progress Note SUBJECT: Status post ; complicated by CHTN/superimposed pre-e. Pain co ntrolled. She has been ambulating, voiding spontaneously without issue and tolerating regular diet. Lochia decreasing/minimal. Patient is ambulating well. Denies any SOTO, visual changes, RUQ pain, sob, cp. Current antihypertensive regimen is Labetalol 300mg TID and Nifedipine XL 30mg qam. Formerly on Amlodipine prior to . Not planning on breast feeding. OBJECTIVE: VITAL SIGNS: Hypertensive (intermittently severe) afebrile. Alert and oriented times three. Abdomen: Fundus firm at U-2. Soft, NTTP. ASSESSMENT: Status post spontaneous vaginal delivery; CHTN w/ superimposed pre- eclampsia. Hypertensive, afebrile, hemodynamically stable with no evidence of infection. Asymptomatic for pre-e. PLAN: Monitor BP /symptoms closely BP regimen altered to the following: Labetalol 400mg TID and Amlodipine 10mg qam. Tylenol and Motrin for pain. Routine instructions/precautions reviewed. Routine PP visit in 6 weeks in clinic. Anticipate d/c to home tomorrow. Lala Velasco DO VS, I&O, 24H, Fishbone Vital Signs/I&O Vital Signs Date Time Temp Pulse Resp B/P (MAP) Pulse Ox O2 Delivery O2 Flow Rate FiO2 05/19/20 09:21 164/98 (120) 05/19/20 08:32 83 05/19/20 07:14 98.5 05/19/20 06:15 93 98 Room Air I&O- Last 24 Hours up to 6 AM 05/19/20 06:00 Intake Total 5044 ml Output Total 62476 ml Balance -4956 ml VÍCTOR VELASCO DO May 19, 2020 10:03
[2020-05-19] MEDS: LABETALOL 200 MG TAB PO SCH ×2 (15:23→21:57)
[2020-05-20 02:00] VITALS: BP 152/100
[2020-05-20 03:50] VITALS: BP 154/102
[2020-05-20 06:00] VITALS: BP 170/102
[2020-05-20] MEDS: LABETALOL 200 MG TAB PO SCH (06:05)
--- NOTE | 2020-05-20 07:17 | IPNPDOC ---
Progress Note Date of Service: May 20, 2020 Day#: 3 Progress Note SUBJECT: Status post . Pain is well controlled. She has been ambulating, voiding spontaneously without issue and tolerating regular diet. Lochia decreasing/minimal. Denies SOTO, visual changes, RUQ pain, sob, cp. CHTN/superimposed pre-e: Labetalol 400mg TID, Amlodipine 10mg daily OBJECTIVE: VITAL SIGNS: Hypertensive, afebrile. Alert and oriented times three. Abdomen: Fundus firm at U-2. Soft, NTTP. ASSESSMENT: Status post spontaneous vaginal delivery; CHTN. Vitals within normal limits, afebrile, hemodynamically stable with no evidence of infection. PLAN: Discharge to home today. Close f/u in office; w/in the week for walk-in BP check. Tylenol and Motrin for pain. Routine instructions/precautions reviewed. Lala Velasco DO VS, I&O, 24H, Fishbone Vital Signs/I&O Vital Signs Date Time Temp Pulse Resp B/P (MAP) Pulse Ox O2 Delivery O2 Flow Rate FiO2 05/20/20 06:05 74 170/102 05/20/20 06:00 98.4 18 98 Room Air I&O- Last 24 Hours up to 6 AM 05/20/20 06:00 Intake Total 775 ml Output Total 550 ml Balance 225 ml VÍCTOR VELASCO DO May 20, 2020 07:17
[2020-05-20] MEDS ORDERED: LABE20TAB PO (08:31)
[2020-05-20] MEDS ORDERED: AMLO1TAB25 PO (08:31)
[2020-05-20] MEDS: PRENATAL VITAMINS CHEWABLE TABLET PO SCH (08:48)
[2020-05-20 08:51] VITALS: BP 158/88
[2020-05-20] MEDS: amLODIPine 10 MG TAB PO SCH (08:51)
[2020-05-20 08:53] VITALS: BP 158/89
== END 2020-05-20 11:11 | disposition home or self-care (01) | DRG 560 ==
LOC: M LDO 16:24 → M LDI 17:47 → M OBS 05-17 04:52
PROVIDERS: ADMIT Obstetrics & Gynecology; ATTEND Obstetrics & Gynecology
PROC: 3E033VJ Introduction of Other Hormone into Peripheral Vein, Percutaneous Approach (ICD-10-PCS; 2020-05-14)
PROC: 3E0DXGC Introduction of Other Therapeutic Substance into Mouth and Pharynx, External Approach (ICD-10-PCS; 2020-05-14)
PROC: 10E0XZZ Delivery of Products of Conception, External Approach (ICD-10-PCS; principal; 2020-05-17)
PROC: 0KQM0ZZ Repair Perineum Muscle, Open Approach (ICD-10-PCS; 2020-05-17)
DX: O10.92 Unspecified pre-existing hypertension complicating childbirth (principal); E66.9 Obesity, unspecified; O24.425 Gestational diabetes mellitus in childbirth, controlled by oral hypoglycemic drugs; Z37.0 Single live birth; Z3A.37 37 weeks gestation of pregnancy; O09.523 Supervision of elderly multigravida, third trimester; O99.214 Obesity complicating childbirth; O70.1 Second degree perineal laceration during delivery

== ENCOUNTER 2021-02-06 12:36 | Emergency (ER) | payer BC ==
[~2021-02-06] VITALS: Ht 175.3 cm; Wt 117.3 kg
[~2021-02-06 12:36] MED LIST changes: +AMLO1TAB25 PO; -LABE100T36 PO; +LABE100T5 PO; +LABE20TAB PO
[2021-02-06] MEDS ORDERED: METF500T13 (13:01)
[2021-02-06 18:40] LABS: BASO # 0.1 10^3/uL (0.0-0.2); BASO % 0.5 % (0.0-1.0); EOS # 0.1 10^3/uL (0.0-0.5); EOS % 1.1 % (0.0-3.0); HEMATOCRIT 43.7 % (36.0-47.0); HEMOGLOBIN 13.9 g/dl (12.0-15.5); LYMPH # 1.5 10^3/uL (1.5-5.0); LYMPH % 15.5 % (24.0-44.0); MEAN CORPUSCULAR HEMOGLOBIN 27.3 pg (27.0-33.0); MEAN CORPUSCULAR HGB CONC 31.8 g/dl (32.0-36.5); MEAN CORPUSCULAR VOLUME 85.7 fl (80.0-96.0); MONO # 0.5 10^3/uL (0.0-0.8); MONO % 5.1 % (2.0-8.0); NEUTROPHILS # 7.4 10^3/uL (1.5-8.5); NEUTROPHILS % 77.5 % (36.0-66.0); PLATELET COUNT, AUTOMATED 423 10^3/uL (150-450); WHITE BLOOD COUNT 9.5 10^3/uL (4.0-10.0)
[2021-02-06 18:45] LABS: BLOOD UREA NITROGEN 11 MG/DL (7-18); CALCIUM LEVEL 9.2 MG/DL (8.5-10.1); CARBON DIOXIDE LEVEL 27 MEQ/L (21-32); CHLORIDE LEVEL 104 MEQ/L (98-107); CREATININE FOR GFR 0.71 MG/DL (0.55-1.30); GLOMERULAR FILTRATION RATE > 60.0 (>60); GLUCOSE, FASTING 84 MG/DL (70-100); POTASSIUM SERUM 4.1 MEQ/L (3.5-5.1); SODIUM LEVEL 138 MEQ/L (136-145)
[2021-02-06 19:06] LABS: APPEARANCE, URINE CLOUDY (CLEAR); BACTERIA, URINE AUTO NEGATIVE (NEGATIVE); BILIRUBIN, URINE AUTO NEGATIVE (NEGATIVE); BLOOD, URINE BLOOD 3+ (NEGATIVE); COLOR, URINE RED (YELLOW); GLUCOSE, URINE (UA) AUTO NEGATIVE (NEGATIVE); KETONE, URINE AUTO NEGATIVE (NEGATIVE); LEUKOCYTE ESTERASE, URINE AUTO 1+ (NEGATIVE); MUCUS, URINE SMALL (NEGATIVE); NITRITE, URINE AUTO NEGATIVE (NEGATIVE); PROTEIN, URINE AUTO 3+ mg/dL (NEGATIVE); RBC, URINE AUTO TNTC /HPF (0-3); SPECIFIC GRAVITY URINE AUTO 1.019 (1.002-1.035); SQUAMOUS EPITHELIAL CELL UR AU 8 /HPF (0-6); UROBILINOGEN, URINE AUTO 0.2 mg/dL (0.0-2.0); WBC, URINE AUTO TNTC /HPF (0-3)
[2021-02-06 19:08] LABS: HCG, SERUM QUANTITATIVE 81 MIU/ML
--- NOTE | 2021-02-06 20:01 | REP ---
INDICATION: vag bleeding, positive hcg. COMPARISON: None. TECHNIQUE: Real-time sonographic evaluation of gravid uterus performed utilizing transabdominal and endovaginal technique. FINDINGS: The uterus measures 8.3 x 4.3 x 6.7 cm. Endometrial stripe measures 7 mm. No intrauterine gestational sac or endometrial fluid collection is seen. Right ovary measures 2.8 x 2.8 x 2.8 cm left ovary 2.9 x 1.8 x 2.6 cm. Complex dominant follicle in the left ovary measures 1.7 cm. Otherwise there is no adnexal mass or free fluid identified. Blood flow is seen in each ovary with duplex Doppler evaluation, with no torsion. IMPRESSION: No intrauterine gestational sac. Complex dominant follicle left ovary. No adnexal mass, free fluid or torsion. Differential diagnosis would include very early intrauterine , missed AB, or ectopic . Suggest correlation with serial quantitative beta HCG values, and follow-up ultrasound if necessary. <Electronically signed by Jd Desouza > 02/06/211956
[2021-02-06] MEDS ORDERED: RHOGAM 300 MCG (1500 IU) INJ (J2790) IM ONE (21:40)
[2021-02-06 22:27] VITALS: BP 158/78
== END 2021-02-06 22:43 | disposition home or self-care (01) ==
LOC: M ED 12:36
DX: O20.0 Threatened abortion (principal); O46.91 Antepartum hemorrhage, unspecified, first trimester; O26.892 Other specified pregnancy related conditions, second trimester; R10.2 Pelvic and perineal pain; Z3A.09 9 weeks gestation of pregnancy; N83.02 Follicular cyst of left ovary; O99.341 Other mental disorders complicating pregnancy, first trimester; Z79.899 Other long term (current) drug therapy
CPT/HCPCS: 36415; 76801; 80048; 81001; 84702; 85025; 86850; 86900; 86901; 87088; 87186; 96372; 99284; J2790

== ENCOUNTER → 2021-02-08 | Outpatient (CLI) | payer BC ==
[~2021-02-08] MED LIST changes: +METF500T13
== END ==
LOC: M LAB 12:52
PROVIDERS: ATTEND Emergency Medicine
DX: O20.0 Threatened abortion (principal); Z3A.00 Weeks of gestation of pregnancy not specified

== ENCOUNTER → 2021-02-15 | Outpatient (CLI) | payer BC | LOC: M LAB 13:18 | PROVIDERS: ATTEND Obstetrics & Gynecology | DX: O36.80X0 Pregnancy with inconclusive fetal viability, not applicable or unspecified (principal) ==

== ENCOUNTER → 2021-04-28 | Outpatient (REF) | payer BC | LOC: M SFHCWAGY 13:36 | PROVIDERS: ATTEND Advanced Practice Midwife | DX: Z12.4 Encounter for screening for malignant neoplasm of cervix (principal); Z77.9 Other contact with and (suspected) exposures hazardous to health | CPT/HCPCS: 87624; G0123 ==

== ENCOUNTER → 2021-09-16 | Outpatient (CLI) | payer BC ==
[2021-09-16 17:37] LABS: HEMATOCRIT 39.4 % (36.0-47.0); HEMOGLOBIN 12.6 g/dl (12.0-15.5); MEAN CORPUSCULAR HEMOGLOBIN 28.1 pg (27.0-33.0); MEAN CORPUSCULAR VOLUME 87.8 fl (80.0-96.0); PLATELET COUNT, AUTOMATED 371 10^3/uL (150-450); RED BLOOD COUNT 4.49 10^6/uL (4.00-5.40); WHITE BLOOD COUNT 10.4 10^3/uL (4.0-10.0)
== END ==
LOC: M PLALAB 15:44
PROVIDERS: ATTEND Obstetrics & Gynecology
DX: O09.529 Supervision of elderly multigravida, unspecified trimester (principal); Z3A.00 Weeks of gestation of pregnancy not specified
CPT/HCPCS: 36415; 85027; 86850; 86900; 86901; J2790

== ENCOUNTER 2021-09-29 12:15 | Emergency (ER) | payer BC ==
[~2021-09-29] VITALS: Ht 175.3 cm; Wt 116.0 kg
[2021-09-29] MEDS: METOPROLOL 5 MG/5 ML VIAL IV SCH ×3 (13:20→13:30)
[2021-09-29 13:24] LABS: BASO # 0.1 10^3/uL (0.0-0.2); BASO % 0.5 % (0.0-1.0); EOS # 0.1 10^3/uL (0.0-0.5); EOS % 0.7 % (0.0-3.0); HEMATOCRIT 39.8 % (36.0-47.0); HEMOGLOBIN 12.8 g/dl (12.0-15.5); LYMPH # 1.6 10^3/uL (1.5-5.0); LYMPH % 15.5 % (24.0-44.0); MEAN CORPUSCULAR HEMOGLOBIN 28.4 pg (27.0-33.0); MEAN CORPUSCULAR HGB CONC 32.2 g/dl (32.0-36.5); MEAN CORPUSCULAR VOLUME 88.4 fl (80.0-96.0); MONO # 0.4 10^3/uL (0.0-0.8); NEUTROPHILS # 8.4 10^3/uL (1.5-8.5); NEUTROPHILS % 78.8 % (36.0-66.0); PLATELET COUNT, AUTOMATED 422 10^3/uL (150-450); WHITE BLOOD COUNT 10.6 10^3/uL (4.0-10.0)
[2021-09-29 13:33] LABS: INR 0.98; PROTHROMBIN TIME 13.4 SECONDS (12.7-14.5)
[2021-09-29 13:34] LABS: PARTIAL THROMBOPLASTIN TIME 26.4 SECONDS (25.9-37.0)
[2021-09-29 13:48] LABS: CK-MB VALUE MASS < 1.0 NG/ML (<3.6); CPK CREATINE PHOSPHOKINASE 129 U/L (26-192); MB/CK RELATIVE INDEX 0.78 (< OR =4)
[2021-09-29] MEDS ORDERED: BRIM2OPD OU (13:48)
[2021-09-29] MEDS ORDERED: LATA0.0015 OU (13:48)
[2021-09-29 13:55] LABS: ALBUMIN 3.8 GM/DL (3.2-5.2); ALT/SGPT 18 U/L (12-78); BILIRUBIN,DIRECT 0.1 MG/DL (0.0-0.2); BILIRUBIN,TOTAL 0.5 MG/DL (0.2-1.0); BLOOD UREA NITROGEN 11 MG/DL (7-18); CALCIUM LEVEL 9.4 MG/DL (8.5-10.1); CARBON DIOXIDE LEVEL 26 MEQ/L (21-32); CHLORIDE LEVEL 107 MEQ/L (98-107); CREATININE FOR GFR 0.72 MG/DL (0.55-1.30); FREE T4 0.85 NG/DL (0.76-1.46); GLOMERULAR FILTRATION RATE > 60.0 (>60); GLUCOSE, FASTING 103 MG/DL (70-100); POTASSIUM SERUM 4.4 MEQ/L (3.5-5.1); SODIUM LEVEL 140 MEQ/L (136-145); THYROID STIMULATING HORMONE 0.781 uIU/ML (0.358-3.740); TOTAL PROTEIN 7.3 GM/DL (6.4-8.2)
[2021-09-29 13:58] LABS: D-DIMER QUANT < 270 ng/ml (<500)
[2021-09-29] MEDS ORDERED: RHOGAM 300 MCG (1500 IU) INJ (J2790) IM ONE (14:15)
[2021-09-29] MEDS ORDERED: LABE20TAB PO (14:32)
[2021-09-29] MEDS ORDERED: TRIA25CR TOP (14:32)
[2021-09-29] MEDS ORDERED: HOME MED LIST COMPLETE! XX SCH (14:35)
[2021-09-29 14:52] LABS: RSV AMPLIFICATION NEGATIVE (NEGATIVE)
[2021-09-29 15:55] LABS: NT-PRO BNP 2422 PG/ML (<125)
[2021-09-29 16:30] LABS: CK-MB VALUE MASS < 1.0 NG/ML (<3.6); CPK CREATINE PHOSPHOKINASE 112 U/L (26-192); MB/CK RELATIVE INDEX 0.89 (< OR =4)
[2021-09-29] MEDS ORDERED: DIGOXIN 0.25 MG TAB PO ONE (17:20)
[2021-09-29] MEDS ORDERED: DIGO0.253 PO (17:30)
[2021-09-29 17:46] VITALS: BP 125/84
== END 2021-09-29 17:49 | disposition home or self-care (01) ==
LOC: M ED 12:15
DX: I48.91 Unspecified atrial fibrillation (principal); I10 Essential (primary) hypertension; G43.909 Migraine, unspecified, not intractable, without status migrainosus; E28.2 Polycystic ovarian syndrome; E11.9 Type 2 diabetes mellitus without complications; F41.9 Anxiety disorder, unspecified; Z79.899 Other long term (current) drug therapy
CPT/HCPCS: 71045; 76801; 76817; 80048; 80076; 82550; 82553; 83880; 84439; 84443; 84484; 85025; 85379; 85610; 85730; 86850; 86900; 86901; 87631; 90471; 93005; 93041; 93976; 94760; 99285; J2790

== ENCOUNTER → 2021-11-30 | Outpatient (CLI) | payer BC ==
[~2021-11-30] MED LIST changes: +BRIM2OPD OU; +DIGO0.253 PO; +LATA0.0015 OU; +TRIA25CR TOP
[2021-11-30 09:35] LABS: BASO # 0.1 10^3/uL (0.0-0.2); BASO % 0.7 % (0.0-1.0); EOS # 0.1 10^3/uL (0.0-0.5); EOS % 1.1 % (0.0-3.0); HEMATOCRIT 37.3 % (36.0-47.0); HEMOGLOBIN 11.8 g/dl (12.0-15.5); LYMPH # 1.3 10^3/uL (1.5-5.0); LYMPH % 15.3 % (24.0-44.0); MEAN CORPUSCULAR HEMOGLOBIN 27.3 pg (27.0-33.0); MEAN CORPUSCULAR HGB CONC 31.6 g/dl (32.0-36.5); MEAN CORPUSCULAR VOLUME 86.3 fl (80.0-96.0); MONO # 0.4 10^3/uL (0.0-0.8); MONO % 4.5 % (2.0-8.0); NEUTROPHILS # 6.6 10^3/uL (1.5-8.5); NEUTROPHILS % 77.8 % (36.0-66.0); PLATELET COUNT, AUTOMATED 351 10^3/uL (150-450); RED BLOOD COUNT 4.32 10^6/uL (4.00-5.40); WHITE BLOOD COUNT 8.4 10^3/uL (4.0-10.0)
[2021-11-30 10:12] LABS: DIGOXIN LEVEL 0.8 NG/ML (0.5-2.0)
== END ==
LOC: M LAB 08:48
PROVIDERS: ATTEND Internal Medicine Cardiovascular Disease
DX: I48.0 Paroxysmal atrial fibrillation (principal); R01.1 Cardiac murmur, unspecified; I50.9 Heart failure, unspecified

== ENCOUNTER → 2023-10-22 | Outpatient (REF) | payer BC ==
[~2023-10-22] MED LIST changes: +LABE100T40 PO; -LABE100T5 PO
[2023-10-27 13:52] LABS: HPV APTIMA Not Detected (Not Detected)
== END ==
LOC: M SFHCWAGY 10:16
PROVIDERS: ATTEND Advanced Practice Midwife
DX: Z12.4 Encounter for screening for malignant neoplasm of cervix (principal)
CPT/HCPCS: 87624; G0123

== ENCOUNTER → 2023-11-15 | Outpatient (CLI) | payer BC | LOC: M PLAIMG 10:33 | PROVIDERS: ATTEND Physician Assistant | DX: I77.810 Thoracic aortic ectasia (principal); I35.1 Nonrheumatic aortic (valve) insufficiency ==

== ENCOUNTER → 2024-08-11 | Outpatient (REF) | payer BC | LOC: M LAB REF 20:51 | PROVIDERS: ATTEND Physician Assistant | DX: B34.9 Viral infection, unspecified (principal) ==